=== PATIENT | female | born 1995 | race African-American/Black ===

== ENCOUNTER 2017-01-30 20:00 | Emergency (ER) | payer BC ==
[2017-01-30 20:09] VITALS: BP 129/83
--- NOTE | 2017-01-30 20:44 | EDM.PDOC ---
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 The symptoms started and she came immediately to the ED. She says the cramping was severe at a 9/10. It has improved and is now a 5/10. This is her 3rd . No previous miscarriages. She's had 3 positive tests at home. She is planning to see Dr. Gill. LMP was 12/25/16. Her blood type is O Positive. No urinary symptoms. No syncope. No nausea or vomiting. Pelvic Pain Score (Numeric/FACES): 8 - Related Data Allergies Allergy/AdvReac Type Severity Reaction Status Date / Time No Known Allergies Allergy Verified 01/30/17 20:09 Home Meds: Home Meds . [No Known Home Meds] 01/30/17 [History] Past Medical History - Past Health History Medical/Surgical History: Denies Medical/Surgical History Social & Family History - Tobacco Use Smoking Status *Q: Never Smoker Second Hand Smoke Exposure: No - Recreational Drug Use Recreational Drug Use: No ED ROS GENERAL - Review of Systems Review Of Systems: See Below Constitutional: Reports: No Symptoms. Denies: Fever, Chills Respiratory: Reports: No Symptoms. Denies: Shortness of Breath Cardiovascular: Reports: No Symptoms. Denies: Chest Pain GI/Abdominal: Denies: Abdominal Pain, Nausea, Vomiting : Reports: Other (pelvic cramping and bleeding). Denies: Dysuria, Flank Pain , Frequency ED EXAM - Physical Exam Exam: See Below Exam Limited By: No Limitations General Appearance: Alert, WD/WN, No Apparent Distress, Anxious Respiratory/Chest: No Respiratory Distress, Lungs Clear, Normal Breath Sounds Cardiovascular: Regular Rate, Rhythm GI/Abdominal: Normal Bowel Sounds, Soft, No Distention, Other (mild tenderness over pelvic region on palpation ) Back Exam: Normal Inspection, Full Range of Motion. No: CVA Tenderness (L), CVA Tenderness (R) Neurological: Alert, Normal Cognition Course - Vital Signs Last Recorded V/S: Last Vital Signs Temp 98 F 01/30/17 20:06 Pulse 100 01/30/17 20:06 Resp 16 01/30/17 20:06 BP 129/83 01/30/17 20:06 Pulse Ox 99 01/30/17 20:06 - Orders/Labs/Meds Orders: Active Orders 24 hr Category Date Time Status Abdomen Pelvis w Cont [CT] Stat Exams 01/30/17 20:41 Stop Req OB Transvaginal [US] Stat Exams 01/30/17 20:43 Taken Labs: Laboratory Tests 01/30/17 01/30/17 01/30/17 Range/Units 20:48 20:54 20:54 WBC 8.84 (3.98-10.04) K/mm3 RBC 4.20 (3.98-5.22) M/mm3 Hgb 13.3 (11.2-15.7) gm/L Hct 39.4 (34.1-44.9) % MCV 93.8 (79.4-94.8) fl MCH 31.7 (25.6-32.2) pg MCHC 33.8 (32.2-35.5) g/dl RDW Std Deviation 41.6 (36.4-46.3) fL Plt Count 280 (182-369) K/mm3 MPV 10.8 (9.4-12.3) fl Neut % (Auto) 44.7 (34.0-71.1) % Lymph % (Auto) 41.0 (19.3-51.7) % [place] % (Auto) 12.3 (4.7-12.5) % Eos % (Auto) 1.6 (0.7-5.8) Baso % (Auto) 0.3 (0.1-1.2) % Neut # (Auto) 3.95 (1.56-6.13) K/mm3 Lymph # (Auto) 3.62 (1.18-3.74) K/mm3 [place] # (Auto) 1.09 H (0.24-0.36) K/mm3 Eos # (Auto) 0.14 (0.04-0.36) K/mm3 Baso # (Auto) 0.03 (0.01-0.08) K/mm3 HCG, Quant 1981.0 mIU/mL Urine Color Yellow (Yellow) Urine Appearance Clear (Clear) Urine pH 7.0 (5.0-8.0) Ur Specific [place] 1.015 (1.005-1.030) Urine Protein Negative (Negative) Urine Glucose (UA) Negative (Negative) Urine Ketones Negative (Negative) Urine Occult Blood Negative (Negative) Urine Nitrite Negative (Negative) Urine Bilirubin Negative (Negative) Urine Urobilinogen 0.2 (0.2-1.0) Ur Leukocyte Esterase Negative (Negative) Urine RBC Not seen (0-5) /hpf Urine WBC 0-5 (0-5) /hpf Ur Epithelial Cells 5-10 H (0-5) /hpf Urine Bacteria Not seen (FEW) /hpf Urine Mucus Not seen (FEW) /hpf Blood Type 01/30/17 Range/Units 21:21 WBC (3.98-10.04) K/mm3 RBC (3.98-5.22) M/mm3 Hgb (11.2-15.7) gm/L Hct (34.1-44.9) % MCV (79.4-94.8) fl MCH (25.6-32.2) pg MCHC (32.2-35.5) g/dl RDW Std Deviation (36.4-46.3) fL Plt Count (182-369) K/mm3 MPV (9.4-12.3) fl Neut % (Auto) (34.0-71.1) % Lymph % (Auto) (19.3-51.7) % [place] % (Auto) (4.7-12.5) % Eos % (Auto) (0.7-5.8) Baso % (Auto) (0.1-1.2) % Neut # (Auto) (1.56-6.13) K/mm3 Lymph # (Auto) (1.18-3.74) K/mm3 [place] # (Auto) (0.24-0.36) K/mm3 Eos # (Auto) (0.04-0.36) K/mm3 Baso # (Auto) (0.01-0.08) K/mm3 HCG, Quant mIU/mL Urine Color (Yellow) Urine Appearance (Clear) Urine pH (5.0-8.0) Ur Specific [place] (1.005-1.030) Urine Protein (Negative) Urine Glucose (UA) (Negative) Urine Ketones (Negative) Urine Occult Blood (Negative) Urine Nitrite (Negative) Urine Bilirubin (Negative) Urine Urobilinogen (0.2-1.0) Ur Leukocyte Esterase (Negative) Urine RBC (0-5) /hpf Urine WBC (0-5) /hpf Ur Epithelial Cells (0-5) /hpf Urine Bacteria (FEW) /hpf Urine Mucus (FEW) /hpf Blood Type O POSITIVE Meds: Medications Discontinued Medications Generic Name Dose Route Start Last Admin Trade Name Briseida PRN Reason Stop Dose Admin Acetaminophen 975 mg 01/30/17 21:23 01/30/17 21:32 Tylenol PO 01/30/17 21:24 975 mg NOW ONE Administration - Re-Assessments/Exams Free Text/Narrative Re-Assessment/Exam: CBC normal. UA normal. Serum hcg 1981. Blood type is O positive. Transvaginal OB ultrasound read by Dr. Rincon. Impression: 1. very small cystic area within the endometrial cavity. Uncertain if this represents a pseudo-gestational sac or a real gestational sac. Follow-up study could be considered 11days if patient's clinical status remains stable 2. Fair amount of simple appearing fluid withint he pelvic presumably due to cyst leakage 3. Small simple cyst within the maternal right ovary measuring 2.0cm. Hypoechoic area withint he left ovary measuring 2.3cm most likely representing collapsing hemorrhagic cyst. Patient notified of findings. Instructed on return precautions. Instructed to f/ u with Dr. Paz or one of his partners on Friday for recheck. Departure - Departure Time of Disposition: 23:03 Disposition: Home, Self-Care 01 Condition: Good Clinical Impression: Bleeding in early - Discharge Information Instructions: Vaginal Bleeding During , First Trimester Referrals: PCP,None [Primary Care Provider] - Forms: ED Department Discharge Additional Instructions: Follow-up with Dr. Gill, Dr. Paz or Ashley Loya on Friday Call [phone] to schedule Return to ER if your bleeding worsens (soaking more than 1 pad an hour for 2 consecutive hours) Return to ER if your pain worsens or with any additional concerns Tylenol 650mg every 4-6 hours as needed for pain - My Orders Last 24 Hours: My Active Orders 01/30/17 20:41 Abdomen Pelvis w Cont [CT] Stat 01/30/17 20:43 OB Transvaginal [US] Stat - Assessment/Plan Last 24 Hours: My Active Orders 01/30/17 20:41 Abdomen Pelvis w Cont [CT] Stat 01/30/17 20:43 OB Transvaginal [US] Stat
[2017-01-30] MEDS ORDERED: Acetaminophen 325 MG Tab PO ONE (21:23)
--- NOTE | 2017-01-31 07:06 | US ---
First trimester obstetrical ultrasound: Multiple real-time images were obtained transvaginally. Dates: LMP: LMP given as 12/25/16, TORI 10/01/17, gestational age 5 weeks 1 day Fair amount of free fluid is seen within the pelvis. This appears simple and may represent ruptured corpus luteum cyst. There is a very minimal cystic area within the endometrial cavity possibly due to very early gestational sac measuring 3.6 mm. This is out of range for dating. Maternal right ovary shows a simple 2.0 cm cyst. Left maternal ovary shows a hypoechoic area measuring 2.3 cm most likely due to collapsing hemorrhagic cyst. Impression: 1. Very small cystic area within the endometrial cavity. Uncertain if this represents a pseudo-gestational sac or a real gestational sac. Follow-up study could be considered 11 days if patient's clinical status remains stable. 2. Fair amount of simple appearing fluid within the pelvis presumably due to cyst leakage. 3. Small simple cyst within the maternal right ovary measuring 2.0 cm. Hypoechoic area within left ovary measuring 2.3 cm most likely representing collapsing hemorrhagic cyst. Diagnostic code #3
== END 2017-01-30 23:10 | disposition home or self-care (01) ==
LOC: JD.ED 20:00
DX: O20.9 Hemorrhage in early pregnancy, unspecified (principal); Z3A.01 Less than 8 weeks gestation of pregnancy
CPT/HCPCS: 36415; 76817; 81001; 84702; 85025; 86900; 86901; 99284; A9270; 99283

== ENCOUNTER 2017-09-24 10:26 | Inpatient (IN) | payer BC ==
[2017-09-24] MEDS ORDERED: Oxytocin 10 Units/1 ML SDV ONE (10:57)
--- NOTE | 2017-09-24 11:10 | PCM.LDHP ---
L&D History of Present Illness - General Date of Service: 09/24/17 Admit Problem/Dx: Admission Diagnosis/Problem Admission Diagnosis/Problem Source of Information: Patient History Limitations: Reports: No Limitations - History of Present Illness Introduction:: 42-year-old 002 TORI 10/08/17 estimated gestational age 39 weeks and 3 days presented to clinic 4-5 cm dilated 100% effaced soft anterior 0 station. Sent to labor and delivery. She had precipitous delivery after arrival at labor and delivery. Group B strep was positive patient did not receive antibiotics prior to delivery. Severity: Severe Pain Score: 9 Improves with: Reports: None Worsens with: Reports: None Associated Symptoms: Reports: N - Related Data Allergies/Adverse Reactions: Allergies Allergy/AdvReac Type Severity Reaction Status Date / Time No Known Allergies Allergy Verified 01/30/17 20:09 Home Medications: Home Meds . [No Known Home Meds] 01/30/17 [History] Past Medical History - Past Health History Medical/Surgical History: Denies Medical/Surgical History Social & Family History - Tobacco Use Smoking Status *Q: Never Smoker Second Hand Smoke Exposure: No - Recreational Drug Use Recreational Drug Use: No H&P Review of Systems - Review of Systems: Review Of Systems: See Below General: Reports: No Symptoms HEENT: Reports: No Symptoms Pulmonary: Reports: No Symptoms Cardiovascular: Reports: No Symptoms Gastrointestinal: Reports: No Symptoms Genitourinary: Reports: No Symptoms Musculoskeletal: Reports: No Symptoms Skin: Reports: No Symptoms Psychiatric: Reports: No Symptoms Neurological: Reports: No Symptoms Hematologic/Lymphatic: Reports: No Symptoms Immunologic: Reports: No Symptoms L&D Exam - Exam Exam: See Below - OB Specific Fundal Height In cm: 39 Contraction Duration (sec): 60 Contraction Frequency (min): 2 Contraction Intensity: Moderate to Strong Movement: Active Heart Tones: Present Heart Tones per Min: 145 Heart Rate (FHR) Variability: Moderate (6-25 bmp) Presentation: Vertex - Santiago Score Santiago Score Cervix Position: Anterior Santiago Score Consistency: Soft Santiago Score Effacement: >80% Santiago Score Dilation: > 5 cm Santiago Score Infant's Station: -1 ,0 Santiago Score Total: 12 - Exam General: Alert, Oriented HEENT: Conjunctiva Clear, Mucosa Moist & [place], Posterior Pharynx Clear, TMs Clear, PERRLA Neck: Supple, Trachea Midline Lungs: Clear to Auscultation, Normal Respiratory Effort Cardiovascular: Regular Rate, Regular Rhythm GI/Abdominal Exam: Normal Bowel Sounds, Soft, Non-Tender Genitourinary: Normal external exam, Normal bimanual exam, Normal speculum exam Back Exam: Normal Inspection, Full Range of Motion Extremities: Normal Inspection, Normal Range of Motion, Non-Tender, No Pedal Edema, Normal Capillary Refill Skin: Warm, Dry, Intact Neurological: Cranial Nerves Intact, Reflexes Equal Bilateral Psychiatric: Alert, Normal Affect, Normal Mood - Problem List (1) 39 weeks gestation of SNOMED Code(s): 70888585 ICD Code: Z3A.39 - 39 WEEKS GESTATION OF Status: Acute Current Visit: Yes (2) Precipitous delivery, delivered (current hospitalization) SNOMED Code(s): 870699944 ICD Code: O62.3 - PRECIPITATE LABOR Status: Acute Current Visit: Yes Problem List Initiated/Reviewed/Updated: No
--- NOTE | 2017-09-24 11:13 | PCM.DEL ---
L & D Note - General Info Date of Service: 09/24/17 Mother's Due Date: 09/28/17 - Delivery Note Labor: Spontaneous Delivery Outcome: Livebirth (male liveborn at 10:56 AM Apgars 7/9 weight 3860 grams/8 pounds 2.2 ounces. delivery in bed (called at 1052 arrived at 1057 baby delivered at 1056)) Delivery Method: Spontaneous Vaginal Delivery-Single Delivery Mode: Spontaneous Presentation: Vertex Nuchal Cord: None Prep: Povidone-Iodine (Betadine Anesthesia Type: None Episiotomy Type: None Laceration: None Placenta: Intact, Spontaneous (placenta spontaneous 11 AM on Friday09/24/17 intact discarded Espino) Cord: 3 Vessels Estimated Blood Loss: 250 Resuscitation Needed: No [place]el[place]: Suctioned, Bulb Syringe, Stimulated, Warmed, [place] Used, Warmer Used Provider: David Paz Score 1 min: 7 Score 5 min: 9 - Patient Data Med Orders - Current: Current Medications Discontinued Medications Oxytocin (Pitocin) Confirm Administered Dose 10 unit .ROUTE .STK-MED ONE Stop: 09/24/17 10:58 - Problem List & Annotations (1) 39 weeks gestation of SNOMED Code(s): 73977200 Code(s): Z3A.39 - 39 WEEKS GESTATION OF Status: Acute Current Visit: Yes (2) Precipitous delivery, delivered (current hospitalization) SNOMED Code(s): 500293961 Code(s): O62.3 - PRECIPITATE LABOR Status: Acute Current Visit: Yes - Problem List Review Problem List Initiated/Reviewed/Updated: No
[2017-09-24] MEDS ORDERED: Docusate Sodium 100 MG Cap PO PRN (11:56)
[2017-09-24] MEDS ORDERED: Lanolin 100% Cream 7 GM Tube TOP PRN (11:56)
[2017-09-24] MEDS ORDERED: Witch Hazel Medicated Pads 100/Jar TOP PRN (11:56)
[2017-09-24] MEDS ORDERED: Acetaminophen 325 MG Tab PO PRN (11:56)
[2017-09-24] MEDS ORDERED: Benzocaine/Menthol 20%-0.5% Spray 56 GM Canister TOP PRN (11:56)
[2017-09-24] MEDS: Ibuprofen 600 MG Tab PO PRN ×2 (12:50→21:03)
[2017-09-25] MEDS: Ibuprofen 600 MG Tab PO PRN ×2 (00:46→07:45)
[2017-09-25] MEDS: Acetaminophen/oxyCODONE 325-5 MG Tab PO PRN ×3 (01:40→14:19)
--- NOTE | 2017-09-25 08:44 | PCM.DCSUM1 ---
Discharge Summary - Hospital Course Free Text/Narrative:: [facility] L/D Delivery Note Patient Name: MANSI SELF Date of : 89 Patient Status: Inpatient Attending Provider: David Paz Date: 09/24/17 11:11 Initialization Date: 09/24/17 11:11 L & D Note - General Info Date of Service: 09/24/17 Mother's Due Date: 09/28/17 - Delivery Note Labor: Spontaneous Delivery Outcome: Livebirth (male liveborn at 10:56 AM Apgars 7/9 weight 3860 grams/8 pounds 2.2 ounces. delivery in bed (called at 1052 arrived at 1057 baby delivered at 1056)) Delivery Method: Spontaneous Vaginal Delivery-Single Infant Delivery Mode: Spontaneous Presentation: Vertex Nuchal Cord: None Prep: Povidone-Iodine (Betadine Anesthesia Type: None Episiotomy Type: None Laceration: None Placenta: Intact, Spontaneous (placenta spontaneous 11 AM on Friday09/24/17 intact discarded Espino) Cord: 3 Vessels Estimated Blood Loss: 250 Resuscitation Needed: No : Suctioned, Bulb Syringe, Stimulated, Warmed, [place] Used, Warmer Used Provider: David Paz Score 1 min: 7 Score 5 min: 9 - Patient Data Med Orders - Current: Current Medications Discontinued Medications Oxytocin (Pitocin) Confirm Administered Dose 10 unit .ROUTE .STK-MED ONE Stop: 09/24/17 10:58 - Problem List & Annotations (1) 39 weeks gestation of SNOMED Code(s): 25447396 Code(s): Z3A.39 - 39 WEEKS GESTATION OF Status: Acute Current Visit: Yes (2) Precipitous delivery, delivered (current hospitalization) SNOMED Code(s): 060792941 Code(s): O62.3 - PRECIPITATE LABOR Status: Acute Current Visit: Yes - Problem List Review Problem List Initiated/Reviewed/Updated: No HPI Initial Comments: [facility] L/D Delivery Note Patient Name: MANSI SELF Date of : 89 Patient Status: Inpatient Attending Provider: David Paz Date: 09/24/17 11:11 Initialization Date: 09/24/17 11:11 L & D Note - General Info Date of Service: 09/24/17 Mother's Due Date: 09/28/17 - Delivery Note Labor: Spontaneous Delivery Outcome: Livebirth (male liveborn at 10:56 AM Apgars 7/9 weight 3860 grams/8 pounds 2.2 ounces. delivery in bed (called at 1052 arrived at 1057 baby delivered at 1056)) Delivery Method: Spontaneous Vaginal Delivery-Single Delivery Mode: Spontaneous Presentation: Vertex Nuchal Cord: None Prep: Povidone-Iodine (Betadine Anesthesia Type: None Episiotomy Type: None Laceration: None Placenta: Intact, Spontaneous (placenta spontaneous 11 AM on Friday09/24/17 intact discarded Espino) Cord: 3 Vessels Estimated Blood Loss: 250 Resuscitation Needed: No [place]: Suctioned, Bulb Syringe, Stimulated, Warmed, [place] Used, Warmer Used Provider: David Paz Score 1 min: 7 Score 5 min: 9 - Patient Data Med Orders - Current: Current Medications Discontinued Medications Oxytocin (Pitocin) Confirm Administered Dose 10 unit .ROUTE .[facility]-MED ONE Stop: 09/24/17 10:58 - Problem List & Annotations (1) 39 weeks gestation of SNOMED Code(s): 36900731 Code(s): Z3A.39 - 39 WEEKS GESTATION OF Status: Acute Current Visit: Yes (2) Precipitous delivery, delivered (current hospitalization) SNOMED Code(s): 921195457 Code(s): O62.3 - PRECIPITATE LABOR Status: Acute Current Visit: Yes - Problem List Review Problem List Initiated/Reviewed/Updated: No Brief History: [facility] . L/D Delivery Note. [facility] Number: [id number]. Date of : Patient Status: Inpatient. Attending Provider: David Pazccount Number: [id number]. Date: 09/24/17 11:11Initialization Date: 09/24/17 11:11. L & D Note. - General Info. Date of Service: 09/24/17. Mother's Due Date: 09/28/17. - Delivery Note. Labor: Spontaneous. Delivery Outcome: Livebirth ( male liveborn at 10:56 AM Apgars 7/9 weight 3860 grams/8 pounds 2.2 ounces. delivery in bed (called at 1052 arrived at 1057 baby delivered at 1056)). Delivery Method: Spontaneous Vaginal Delivery-Single. Infant Delivery Mode: Spontaneous. Presentation: Vertex. Nuchal Cord: None. Prep: Povidone-Iodine (Betadine. Anesthesia Type: None. Episiotomy Type: None. Laceration: None. Placenta: Intact, Spontaneous (placenta spontaneous 11 AM on Friday09/24/17 intact discarded Espino). Cord: 3 Vessels. Estimated Blood Loss: 250. Resuscitation Needed: No. [place]: Suctioned, Bulb Syringe, Stimulated, Warmed, [place] Used, Warmer Used. Provider: David Paz. Score 1 min: 7. Score 5 min: 9. - Patient Data. Med Orders - Current: Current Medications. Discontinued Medications. Oxytocin ( Pitocin) Confirm Administered Dose 10 unit .ROUTE .STK-MED ONE. Stop: 09/24/17 10:58. - Problem List & Annotations. (1) 39 weeks gestation of . SNOMED Code(s): 54188365. Code(s): Z3A.39 - 39 WEEKS GESTATION OF Status: Acute Current Visit: Yes. (2) Precipitous delivery, delivered ( current hospitalization). SNOMED Code(s): 269910597. Code(s): O62.3 - PRECIPITATE LABOR Status: Acute Current Visit: Yes. - Problem List Review. Problem List Initiated/Reviewed/Updated: No - Discharge Data Discharge Date: 09/25/17 Discharge Disposition: Home, Self-Care 01 Condition: Good - Discharge Diagnosis/Problem(s) (1) 39 weeks gestation of SNOMED Code(s): 33307375 ICD Code: Z3A.39 - 39 WEEKS GESTATION OF Status: Acute Current Visit: Yes (2) Precipitous delivery, delivered (current hospitalization) SNOMED Code(s): 669098349 ICD Code: O62.3 - PRECIPITATE LABOR Status: Acute Current Visit: Yes - Patient Summary/Data Complications: None Consults: None Hospital Course: Uneventful - Patient Instructions Diet: Regular Diet as Tolerated Driving: Do Not Drive (Not drive for 48 hours and for 48 hours after last dose of Percocet.) Showering/Bathing: May Shower, No Tub Bathing/Swimming (6 weeks) Notify Provider of: Fever, Increased Pain, Swelling and Redness, Drainage, Nausea and/or Vomiting - Discharge Plan Prescriptions/Med Rec: Acetaminophen/oxyCODONE [Percocet 325-5 MG] 1 tab PO Q6H PRN #10 tablet PRN Reason: Pain (Severe 7-10) Home Medications: Home Meds PNV #116/Iron Fumarate/FA/DHA [Expecta Combo Pack] 1 each PO DAILY [History] Acetaminophen [Tylenol] 650 mg PO Q4H PRN tablet 09/25/17 [Rx] Acetaminophen/oxyCODONE [Percocet 325-5 MG] 1 tab PO Q6H PRN #10 tablet [Rx] Docusate Sodium [Colace] 100 mg PO BID PRN cap 09/25/17 [Rx] Ibuprofen [IJD: Ibuprofen] 600 mg PO Q4H PRN tablet 09/25/17 [Rx] Lanolin [Lansinoh HPA] 1 applic TOP ASDIRECTED PRN tube 09/25/17 [Rx] Referrals: Augusto Gill MD [Physician] - (2 weeks) - Discharge Summary/Plan Comment DC Time >30 min.: No - Patient Data Vitals - Most Recent: Last Vital Signs Temp 98.1 F 09/25/17 03:39 Pulse 86 09/25/17 03:39 Resp 15 09/25/17 03:39 BP 112/43 L 09/25/17 03:39 Pulse Ox 97 09/25/17 03:39 Weight - Most Recent: 240 lb I&O - Last 24 hours: Intake & Output 09/24/17 09/25/17 09/25/17 22:59 06:59 14:59 Intake Total 240 Balance 240 Lab Results - Last 24 hrs: Laboratory Results - last 24 hr 09/25/17 Range/Units 06:24 WBC 16.92 H (3.98-10.04) K/mm3 RBC 3.90 L (3.98-5.22) M/mm3 Hgb 12.2 (11.2-15.7) gm/L Hct 36.9 (34.1-44.9) % MCV 94.6 (79.4-94.8) fl MCH 31.3 (25.6-32.2) pg MCHC 33.1 (32.2-35.5) g/dl RDW Std Deviation 44.0 (36.4-46.3) fL Plt Count 262 (182-369) K/mm3 MPV 10.6 (9.4-12.3) fl Neut % (Auto) 68.7 (34.0-71.1) % Lymph % (Auto) 21.7 (19.3-51.7) % Stevens % (Auto) 7.6 (4.7-12.5) % Eos % (Auto) 1.1 (0.7-5.8) Baso % (Auto) 0.2 (0.1-1.2) % Neut # (Auto) 11.62 H (1.56-6.13) K/mm3 Lymph # (Auto) 3.68 (1.18-3.74) K/mm3 [place] # (Auto) 1.28 H (0.24-0.36) K/mm3 Eos # (Auto) 0.19 (0.04-0.36) K/mm3 Baso # (Auto) 0.03 (0.01-0.08) K/mm3 Manual Slide Review Normal smear Med Orders - Current: Current Medications Acetaminophen (Tylenol) 650 mg PO Q4H PRN PRN Reason: mild pain or fever Last Admin: 09/24/17 22:36 Dose: 650 mg Benzocaine/Menthol (Dermoplast Pain Relief [place]) 0 gm TOP ASDIRECTED PRN PRN Reason: Perineal Comfort Measure Last Admin: 09/24/17 12:49 Dose: 1 can Docusate Sodium (Colace) 100 mg PO BID PRN PRN Reason: Constipation Emollient Ointment (Lansinoh Hpa) 0 gm TOP ASDIRECTED PRN PRN Reason: Sore Nipples Ibuprofen (Motrin) 600 mg PO Q4H PRN PRN Reason: Mild pain or fever Last Admin: 09/25/17 07:45 Dose: 600 mg Oxycodone/Acetaminophen (Percocet 325-5 Mg) 2 tab PO Q6H PRN PRN Reason: Pain (severe 7-10) Last Admin: 09/25/17 07:44 Dose: 1 tab [place] (Tucks) 1 pad TOP ASDIRECTED PRN PRN Reason: Hemorrhoid pain Discontinued Medications Oxytocin (Pitocin) Confirm Administered Dose 10 unit .ROUTE .STK-MED ONE Stop: 09/24/17 10:58 Last Admin: 09/24/17 11:45 Dose: Not Given *Q Meaningful Use (DIS) - VTE *Q VTE Criteria *Q: - Stroke *Q Stroke Criteria *Q: - AMI *Q AMI Criteria *Q:
[2017-09-25 14:32] VITALS: BP 116/62
== END 2017-09-25 14:21 | disposition home or self-care (01) | DRG 560 ==
LOC: JD.OBCHECK 10:26 → JD.OB 10:26 → JD.OBCHECK 10:55 → JD.OB 10:56
PROVIDERS: ADMIT Obstetrics & Gynecology; ATTEND Obstetrics & Gynecology
PROC: 10E0XZZ Delivery of Products of Conception, External Approach (ICD-10-PCS; principal; 2017-09-24)
DX: O62.3 Precipitate labor (principal); O99.824 Streptococcus B carrier state complicating childbirth; O42.02 Full-term premature rupture of membranes, onset of labor within 24 hours of rupture; Z3A.39 39 weeks gestation of pregnancy; Z37.0 Single live birth
CPT/HCPCS: 36415; 59409; 85025; A9270-GY